=== PATIENT | female | born 1940 | race Caucasian/White ===

== ENCOUNTER → 2016-11-13 | Outpatient (CLI) | payer OTHER | LOC: BRMIMAGING 08:24 | DX: Z12.31 Encounter for screening mammogram for malignant neoplasm of breast (principal) | CPT/HCPCS: G0202 ==

== ENCOUNTER → 2017-11-14 | Outpatient (CLI) | payer OTHER | LOC: BRMIMAGING 07:37 | DX: Z12.31 Encounter for screening mammogram for malignant neoplasm of breast (principal) ==

== ENCOUNTER → 2018-11-18 | Outpatient (CLI) | payer OTHER | LOC: BRMIMAGING 07:43 | DX: Z12.31 Encounter for screening mammogram for malignant neoplasm of breast (principal) ==